=== PATIENT | male | born 1990 | race Hispanic/Latino ===

== ENCOUNTER → 2024-05-29 | Outpatient (CLI) | payer SELFPAY | LOC: M OUTALCOH 08:03 | PROVIDERS: ATTEND Psychiatry & Neurology Psychiatry | DX: F10.20 Alcohol dependence, uncomplicated (principal) ==

== ENCOUNTER → 2024-07-10 | Outpatient (RCR) | payer SELFPAY | LOC: M OUTALCOH 06-11 15:11 | PROVIDERS: ATTEND Psychiatry & Neurology Psychiatry | DX: F10.20 Alcohol dependence, uncomplicated (principal) ==

== ENCOUNTER 2024-08-09 16:00 | Outpatient (RCR) | payer SELFPAY | END 2024-08-10 | LOC: M OUTALCOH 16:00 | PROVIDERS: ATTEND Psychiatry & Neurology Psychiatry | DX: F10.20 Alcohol dependence, uncomplicated (principal) ==

== ENCOUNTER 2024-08-23 15:55 | Outpatient (RCR) | payer SELFPAY | END 2024-09-07 | LOC: M OUTALCOH 15:55 | PROVIDERS: ATTEND Psychiatry & Neurology Psychiatry | DX: F10.20 Alcohol dependence, uncomplicated (principal) ==